=== PATIENT | male | born 1940 | race Caucasian/White ===

== ENCOUNTER 2016-12-31 10:11 | Inpatient (IN) | payer OTHER, MEDICARE ==
[~2016-12-31] VITALS: Ht 175.3 cm; Wt 75.0 kg
[2016-12-31] VITALS (16 sets, daily range): BP systolic 148–185; BP diastolic 72–90; PULSE 61–95; RESP 19–29; TEMP 97.7–98.4; O2SAT 40–100
[2016-12-31] MEDS ORDERED: ENTE325T PO (10:51)
[2016-12-31] MEDS ORDERED: LISI-515 PO (10:51)
[2016-12-31] MEDS ORDERED: PLAV75TA29 PO (10:51)
[2016-12-31] MEDS ORDERED: ATEN25TA PO (10:51)
[2016-12-31] MEDS ORDERED: METF500T PO (10:51)
[2016-12-31] MEDS ORDERED: PRAV20TA PO (10:51)
--- NOTE | 2016-12-31 10:51 | PD ---
HPI Chief Complaint: Respiratory Symptoms Time Seen by Provider: 10:37 Travel History International Travel<30 days: No Contact w/Intl Traveler<30days: No Traveled to known affect area: No History of Present Illness HPI 76yo M with PMH of CAD s/p cardiac stent, HTN, DM presents to the ED with c/o worsening sob since 6:30am today. States he felt more sob than normal just sitting down. Associated with diaphoresis. States sob has improved but not back at baseline. Denies any fever, chest pain, n/v, abdominal pain, focal weakness or numbness. PFSH Past Medical History Hx Anticoagulant Therapy: Yes Cardiovascular Problems: Yes (HTN, CAD, ANGINA ) High Cholesterol: Yes COPD: Yes Coronary Artery Disease: Yes Diabetes: Yes Patient Takes Glucophage: Yes Hypertension: Yes Respiratory: Yes (COPD ) Tetanus Vaccination: > 5 Years Influenza Vaccination: No Past Surgical History Surgical History: No Previous Surgery Cardiac Surgery: Yes (STENT X3 , LA X1 ) Social History Alcohol Use: No Tobacco Use: No (QUIT 11/30/16 ) Substance Use: No Allergies-Medications (Allergen,Severity, Reaction): Coded Allergies: No Known Allergies (Unverified , 12/31/16) Reported Meds & Prescriptions Reported Meds & Active Scripts Active Reported Pravachol (Pravastatin) 20 Mg Tab 10 Mg PO DAILY Enteric Coated Aspirin (Aspirin) 325 Mg Tabdr 325 Mg PO BID Metformin (Metformin HCl) 500 Mg Tab 500 Mg PO BIDPC With meals Atenolol 25 Mg Tab 25 Mg PO DAILY Plavix (Clopidogrel Bisulfate) 75 Mg Tab 75 Mg PO DAILY Lisinopril 20 Mg Tab 20 Mg PO DAILY Review of Systems Except as stated in HPI: all other systems reviewed are Neg Physical Exam Narrative GENERAL: 76yo M in mild distress. SKIN: Focused skin assessment warm/dry. HEAD: Atraumatic. Normocephalic. EYES: Pupils equal and round. No scleral icterus. No injection or drainage. ENT: No nasal bleeding or discharge. Mucous membranes pink and moist. NECK: Trachea midline. + JVD. CARDIOVASCULAR: Regular rate and rhythm. +Systolic murmur appreciated. RESPIRATORY: + accessory muscle use. End expiratory wheezing bilaterally. Decreased breath sounds bilaterally. GASTROINTESTINAL: Abdomen soft, non-tender, nondistended. MUSCULOSKELETAL: No obvious deformities. No clubbing. No cyanosis. +Bilateral lower ext edema. NEUROLOGICAL: Awake and alert. No obvious cranial nerve deficits. Motor grossly within normal limits. Normal speech. PSYCHIATRIC: Appropriate mood and affect; insight and judgment normal. Data Data Last Documented VS Vital Signs Date Time Temp Pulse Resp B/P (MAP) Pulse Ox O2 Delivery O2 Flow Rate FiO2 12/31/16 12:00 71 29 171/80 (110) 100 BiPAP 40 12/31/16 10:32 98.3 Orders Orders Complete Blood Count With Diff (12/31/16 10:46) Basic Metabolic Panel (Bmp) (12/31/16 10:46) B-Type Natriuretic Peptide (12/31/16 10:46) Act Partial Throm Time (Ptt) (12/31/16 10:46) Prothrombin Time / Inr (Pt) (12/31/16 10:46) Magnesium (Mg) (12/31/16 10:46) Troponin I (12/31/16 10:46) Iv Access Insert/Monitor (12/31/16 10:46) Ecg Monitoring (12/31/16 10:46) Oximetry (12/31/16 10:46) Oxygen Administration (12/31/16 10:46) Chest, Single Ap (12/31/16 10:46) Sodium Chloride 0.9% Flush (Ns Flush) (12/31/16 11:00) Blood Culture (12/31/16 12:15) Lactic Acid Sepsis Protocol (12/31/16 12:15) Ceftriaxone Inj (Rocephin Inj) (12/31/16 12:15) Azithromycin (Zithromax) (12/31/16 12:15) Furosemide Inj (Lasix Inj) (12/31/16 12:30) Arterial Blood Gas (Abg) (12/31/16 12:28) Resp Bipap / Cpap Non Invas Vt (12/31/16 12:28) Admit Order (Ed Use Only) (12/31/16 12:39) Labs Laboratory Tests Test 12/31/16 10:52 12/31/16 12:40 White Blood Count 7.9 TH/MM3 Red Blood Count 4.50 MIL/MM3 Hemoglobin 11.7 GM/DL Hematocrit 37.5 % Mean Corpuscular Volume 83.2 FL Mean Corpuscular Hemoglobin 25.9 PG Mean Corpuscular Hemoglobin Concent 31.2 % Red Cell Distribution Width 15.9 % Platelet Count 191 TH/MM3 Mean Platelet Volume 8.1 FL Neutrophils (%) (Auto) 74.5 % Lymphocytes (%) (Auto) 16.6 % Monocytes (%) (Auto) 6.8 % Eosinophils (%) (Auto) 1.7 % Basophils (%) (Auto) 0.4 % Neutrophils # (Auto) 5.9 TH/MM3 Lymphocytes # (Auto) 1.3 TH/MM3 Monocytes # (Auto) 0.5 TH/MM3 Eosinophils # (Auto) 0.1 TH/MM3 Basophils # (Auto) 0.0 TH/MM3 CBC Comment DIFF FINAL Differential Comment Prothrombin Time 11.2 SEC Prothromb Time International Ratio 1.0 RATIO Activated Partial Thromboplast Time 28.3 SEC Blood Urea Nitrogen 26 MG/DL Creatinine 0.99 MG/DL Random Glucose 148 MG/DL Calcium Level 9.0 MG/DL Magnesium Level 2.1 MG/DL Sodium Level 144 MEQ/L Potassium Level 4.0 MEQ/L Chloride Level 110 MEQ/L Carbon Dioxide Level 27.2 MEQ/L Anion Gap 7 MEQ/L Estimat Glomerular Filtration Rate 73 ML/MIN Troponin I 0.44 NG/ML B-Type Natriuretic Peptide 1467 PG/ML Blood Gas Puncture Site LT RADIAL Blood Gas Patient Temperature 98.6 Blood Gas HCO3 26 mmol/L Blood Gas Base Excess 2.0 mmol/L Blood Gas Oxygen Saturation 94 % Arterial Blood pH 7.40 Arterial Blood Partial Pressure CO2 43 mmHg Arterial Blood Partial Pressure O2 82 mmHG Arterial Blood Oxygen Content 15.0 Vol % Arterial Blood Carboxyhemoglobin 1.6 % Arterial Blood Methemoglobin 0.6 % Blood Gas Hemoglobin 11.3 G/DL Blood Gas Liter Flow 2 L/M [facility] Medical Decision Making Medical Screen Exam Complete: Yes Emergency Medical Condition: Yes Interpretation(s) EKG: NSR 83bpm. Normal axis. LVH. ST depression diffusely. Differential Diagnosis CHF vs. ACS vs. pneumonia Narrative Course 76yo M with sob that is worst than normal today. Impression is CHF. Labs reviewed, no leukocytosis. BNP is elevated at 1467. Troponin is mildly elevated at 0.44, may be secondary to CHF but will trend since pt has CAD. EKG does show diffuse ST depression but there is also LVH pattern. Pt has no chest pain. CXR showed masslike consolidation in right upper lobe and small right pleural effusion. Left lower lobe infiltrate. Cardiomegaly. Pt had some chills but no fever or cough. Blood culture drawn and lactic acid added. Ceftriaxone and azithromycin given empirically. Pt reevaluated at bedside and is still tachypneic. He is saturating at 100% on 2 L NC but still feels sob. Will give lasix 40mg IV and also place pt on BIPAP. Discussed with resident physician and accepted to their service. Pt's deputy fire chief Dr. Denae plascencia. Discussed with Dr. Philippe and he agrees with the lasix. Pt reevaluated at bedside and feels more comfortable with BIPAP. Pt is less tachypneic and sob improved. Critical Care Narrative Aggregate critical care time was 60 minutes. Time to perform other separately billable procedures was not included in the critical care time. My time did not include minutes spent treating any other patients simultaneously or on activities that did not directly contribute to the patient's treatment. The services I provided to this patient were to treat and/or prevent clinically significant deterioration that could result in: cardiovascular collapse or . I provided critical care services requiring my management, as noted below: Chart data review, documentation time, medication orders and management, vital sign assessments/reviewing monitor data, ordering and reviewing lab tests, ordering and interpreting/reviewing x-rays and diagnostic studies, care of the patient and discussion of the patient with the admitting physicians. Diagnosis Primary Impression: CHF exacerbation Admitting Information Admitting Physician Requests: Ivette Rios DO Dec 31, 2016 10:51
[2016-12-31] MEDS ORDERED: SODIUM CHLORIDE 0.9% FLUSH 10 ML FLUSH IVF PRN (11:00)
--- NOTE | 2016-12-31 11:21 | RADRPT ---
EXAM DATE/TIME: 12/31/2016 11:06 [place] COMPARISON: No previous studies available for comparison. INDICATIONS : Shortness of breath. MEDICAL HISTORY : Hypertension. Hypercholesterolemia. Myocardial infarction. COPD, Angina SURGICAL HISTORY : Stents ENCOUNTER: Initial ACUITY: 1 week PAIN SCORE: 0/10 LOCATION: Bilateral chest FINDINGS: A single portable frontal view of the chest shows a masslike density involving the right upper lobe. An elliptical density is seen associated with the major fissure potentially related to loculated effu mila. Blunting of the right costophrenic angle consistent with small right effusion. Left basilar pro bable consolidation. No effusion on the left. Heart is enlarged. A degenerative scoliotic spine. CONCLUSION: 1. Masslike consolidation involving the right upper lobe. 2. Small right pleural effusion with a small component of suspected loculated fluid within the major fissure. 3. Left lower lobe infiltrate. 4. Cardiomegaly. Sathya Coles Jr., MD on December 31, 2016 at 11:18 Board Certified Radiologist. This report was verified electronically.
[2016-12-31 11:41] LABS: AUTOMATED NEUTROPHIL # 5.9 TH/MM3 (1.8-7.7); BASOPHIL % 0.4 % (0.0-2.0); EOSINOPHIL # 0.1 TH/MM3 (0-0.4); EOSINOPHIL % 1.7 % (0.0-4.0); HEMATOCRIT 37.5 % (39.0-51.0); HEMO FLAGS DIFF FINAL; LYMPH % 16.6 % (9.0-44.0); LYMPHOCYTE # 1.3 TH/MM3 (1.0-4.8); MEAN CELL VOLUME 83.2 FL (80.0-100.0); MEAN CORPUSCULAR HEMOGLOBIN 25.9 PG (27.0-34.0); MEAN CORPUSCULAR HGB CONC 31.2 % (32.0-36.0); MONO % 6.8 % (0.0-8.0); NEUT % 74.5 % (16.0-70.0); PLATELET COUNT 191 TH/MM3 (150-450); RED CELL DISTRIBUTION WIDTH 15.9 % (11.6-17.2); WHITE BLOOD COUNT 7.9 TH/MM3 (4.0-11.0)
[2016-12-31 11:43] LABS: APTT (PATIENT) 28.3 SEC (24.3-30.1); PROTHROMBIN TIME - PATIENT 11.2 SEC (9.8-11.6)
[2016-12-31 11:49] LABS: BICARBONATE 27.2 MEQ/L (21.0-32.0); MAGNESIUM 2.1 MG/DL (1.5-2.5)
[2016-12-31] MEDS ORDERED: cefTRIAXone INJ 1,000 MG in SODIUM CHLORIDE 0.9% INJ 100 ML IV ONE (12:15)
[2016-12-31] MEDS ORDERED: AZITHROMYCIN 250 MG TAB PO ONE (12:15)
[2016-12-31] MEDS ORDERED: FUROSEMIDE 40 MG/4 ML VIAL IV PUSH ONE (12:30)
[2016-12-31 12:47] LABS: BLOOD GAS CARBOXYHEMOGLOBIN 1.6 % (0-4); BLOOD GAS HCO3 26 mmol/L (22-26); BLOOD GAS METHEMOGLOBIN 0.6 % (0-2); BLOOD GAS O2 HGB SATURATION 94 % (90-100); BLOOD GAS PCO2 43 mmHg (38-42); BLOOD GAS PO2 82 mmHG (61-120); BLOOD GAS TOTAL HGB 11.3 G/DL (12.0-16.0); TEMP CORR TO 98.6
[2016-12-31 12:48] LABS: CRITICAL VALUE NO; DRAW SITE LT RADIAL; LITER FLOW 2 L/M; NUMBER OF ARTERIAL PUNCTURES 1; STAT YES; ULNAR PULSE PRESENT
--- NOTE | 2016-12-31 12:55 | HHI.HP ---
[facility] Service Family Medicine Primary Care Physician Unknown Admission Diagnosis CHF exacerbation Diagnoses: International Travel<30 Days: No Contact w/Intl Traveler<30days: No Known Affected Area: No History of Present Illness 76 y/o M, pmhx CAD and smoking, comes in with worsening SOB. He has been experiencing SOB for 1 month, with worsening over the last 1.5 weeks. He experiences these symptoms daily and describes it as - a feeling of not being able to get enough air in his lungs. His SOB acutely worsened this morning around 6:30AM. He has noticed the sx with activity; for example, walking to the mailbox, walking around grocery store, and today even walking to bathroom. He denies any cough, congestion, or other signs of infection. Denies fever/chills. Denies any pain with breathing in or out. Denies any sick contacts or recent travel. He follows with a electroless plater and denies every being told he has any valve abnormalities or heart failure. He stopped smoking a week before his sx started, and has smoked cigarretes for 60pack years. No recent weight changes, change in appetite, or night sweats. (Leighann Amaro MD R2) Review of Systems Constitutional: DENIES: Fever, Weight gain Endocrine: DENIES: Polydipsia, Polyuria Eyes: DENIES: Photosensitivity Ears, nose, mouth, throat: DENIES: Hearing loss, Epistaxis Respiratory: DENIES: Snoring Cardiovascular: DENIES: Palpitations, Lower Extremity Edema Gastrointestinal: DENIES: Black stools, Bloody stools Genitourinary: DENIES: Sexual dysfunction, Hematuria Musculoskeletal: DENIES: Muscle aches Integumentary: DENIES: Nail changes Hematologic/lymphatic: DENIES: Lymphadenopathy Immunologic/allergic: DENIES: Urticaria Neurologic: DENIES: Headache Psychiatric: DENIES: Mood changes (Leighann Amaro MD R2) Past Family Social History Past Medical History CT in 1999 w/ 3 stents - f/u cardio DMII - metformin hypertension - well-controlled on current medications per patient hyperlipidemia (Leighann Amrao MD R2) Allergies: Coded Allergies: No Known Allergies (Unverified , 12/31/16) Family History mom, sisters - HTN daughter, brothers - cancer (does not know what type) Social History denies smoking, last alcohol use was 25y/ago (never an alcohol abuser), denies IV drug use or other drug use (Leighann Amaro MD R2) Physical Exam Vital Signs Vital Signs Date Time Temp Pulse Resp B/P (MAP) Pulse Ox O2 Delivery O2 Flow Rate FiO2 12/31/16 12:45 100 40 12/31/16 12:42 100 BiPAP 40 12/31/16 12:00 71 29 171/80 (110) 100 BiPAP 40 12/31/16 11:24 100 Room Air 12/31/16 10:32 95 25 97 Room Air 12/31/16 10:32 98.3 95 25 185/87 (119) 100 Room Air 12/31/16 10:13 98.4 86 20 168/72 (104) 91 Room Air Physical Exam GENERAL: This is a well-nourished, well-developed patient, in no apparent distress. SKIN: No rashes, ecchymoses or lesions. Cool and dry. HEAD: Atraumatic. Normocephalic. No temporal or scalp tenderness. EYES: Pupils equal round and reactive. Extraocular motions intact. No scleral icterus. No injection or drainage. ENT: Nose without bleeding, purulent drainage or septal hematoma. Throat without erythema, tonsillar hypertrophy or exudate. Uvula midline. Airway patent. NECK: Trachea midline. No JVD or lymphadenopathy. Supple, nontender, no meningeal signs. CARDIOVASCULAR: Regular rate and rhythm , prominent murmur heard on auscultation ; differential includes aortic stenosis or mitral regurgitation RESPIRATORY: Breath sounds equal bilaterally; distant breath sounds. Rhonchi heard on auscultation. No wheezing heard on auscultation. Accuracy of physical exam was limited by noise of BiPAP GASTROINTESTINAL: Abdomen soft, non-tender, nondistended. No hepato-splenomegaly , or palpable masses. No guarding. MUSCULOSKELETAL: Extremities without clubbing, cyanosis, or edema. No joint tenderness, effusion, or edema noted. No calf tenderness. Negative Homans sign bilaterally. NEUROLOGICAL: Awake and alert. Cranial nerves II through XII intact. Motor and sensory grossly within normal limits. Five out of 5 muscle strength in all muscle groups. Normal speech. Laboratory Laboratory Tests Test 12/31/16 10:52 12/31/16 12:40 White Blood Count 7.9 Red Blood Count 4.50 Hemoglobin 11.7 Hematocrit 37.5 Mean Corpuscular Volume 83.2 Mean Corpuscular Hemoglobin 25.9 Mean Corpuscular Hemoglobin Concent 31.2 Red Cell Distribution Width 15.9 Platelet Count 191 Mean Platelet Volume 8.1 Neutrophils (%) (Auto) 74.5 Lymphocytes (%) (Auto) 16.6 Monocytes (%) (Auto) 6.8 Eosinophils (%) (Auto) 1.7 Basophils (%) (Auto) 0.4 Neutrophils # (Auto) 5.9 Lymphocytes # (Auto) 1.3 Monocytes # (Auto) 0.5 Eosinophils # (Auto) 0.1 Basophils # (Auto) 0.0 CBC Comment DIFF FINAL Differential Comment Prothrombin Time 11.2 Prothromb Time International Ratio 1.0 Activated Partial Thromboplast Time 28.3 Blood Urea Nitrogen 26 Creatinine 0.99 Random Glucose 148 Calcium Level 9.0 Magnesium Level 2.1 Sodium Level 144 Potassium Level 4.0 Chloride Level 110 Carbon Dioxide Level 27.2 Anion Gap 7 Estimat Glomerular Filtration Rate 73 Troponin I 0.44 B-Type Natriuretic Peptide 1467 Blood Gas Puncture Site LT RADIAL Blood Gas Patient Temperature 98.6 Blood Gas HCO3 26 Blood Gas Base Excess 2.0 Blood Gas Oxygen Saturation 94 Arterial Blood pH 7.40 Arterial Blood Partial Pressure CO2 43 Arterial Blood Partial Pressure O2 82 Arterial Blood Oxygen Content 15.0 Arterial Blood Carboxyhemoglobin 1.6 Arterial Blood Methemoglobin 0.6 Blood Gas Hemoglobin 11.3 Blood Gas Liter Flow 2 (Leighann Amaro MD R2) Result Diagram: 12/31/16 1052 12/31/16 1052 Caprini VTE Risk Assessment Caprini VTE Risk Assessment: No/Low Risk (score <= 1) Caprini Risk Assessment Model Point Value = 1 Point Value = 2 Point Value = 3 Point Value = 5 Age 41-60 Minor surgery BMI > 25 kg/m2 Swollen legs Varicose veins or History of unexplained or recurrent spontaneous Oral contraceptives or hormone replacement Sepsis (< 1 month) Serious lung disease, including pneumonia (< 1 month) Abnormal pulmonary function Acute myocardial infarction Congestive heart failure (< 1 month) History of inflammatory bowel disease Medical patient at bed rest Age 61-74 Arthroscopic surgery Major open surgery (> 45 min) Laparoscopic surgery (> 45 min) Malignancy Confined to bed (> 72 hours) Immobilizing plaster cast Central venous access Age >= 75 History of VTE Family history of VTE Factor V Leiden Prothrombin [id number] Lupus anticoagulant Anticardiolipin antibodies Elevated serum homocysteine Heparin-induced thrombocytopenia Other congenital or acquired thrombophilia Stroke (< 1 month) Elective arthroplasty Hip, pelvis, or leg fracture Acute spinal cord injury (< 1 month) Prophylaxis Regimen Total Risk Factor Score Risk Level Prophylaxis Regimen 0-1 Low Early ambulation 2 Moderate Order ONE of the following: *Sequential Compression Device (SCD) *Heparin 5000 units SQ BID 3-4 Higher Order ONE of the following medications: *Heparin 5000 units SQ TID *Enoxaparin/Lovenox 40 mg SQ daily (WT < 150 kg, CrCl > 30 mL/min) *Enoxaparin/Lovenox 30 mg SQ daily (WT < 150 kg, CrCl > 10-29 mL/min) *Enoxaparin/Lovenox 30 mg SQ BID (WT < 150 kg, CrCl > 30 mL/min) AND/OR *Sequential Compression Device (SCD) 5 or more Highest Order ONE of the following medications: *Heparin 5000 units SQ TID (Preferred with Epidurals) *Enoxaparin/Lovenox 40 mg SQ daily (WT < 150 kg, CrCl > 30 mL/min) *Enoxaparin/Lovenox 30 mg SQ daily (WT < 150 kg, CrCl > 10-29 mL/min) *Enoxaparin/Lovenox 30 mg SQ BID (WT < 150 kg, CrCl > 30 mL/min) AND *Sequential Compression Device (SCD) (Leighann Amaro MD R2) Assessment and Plan Assessment and Plan 76-year-old male, medical history of CAD and smoking, with acute worsening of shortness of breath. Differential includes COPD versus pneumonia versus CHF versus heart valve abnormality Code Status Full code (Leighann Amaro MD R2) Attending Attestation Patient seen and examined. Case reviewed and discussed with the resident team. Agree with plan of care as discussed with me and documented in the resident note. pt seen on admission in ED. Initially he was in such distress we considered placing him in IMC. However, he is a very adamant DNR and refuses entubation regardless. Fortunately he improved and is better with his breathing today. he has been unable to speak in full sentences so some of the H&P were from questioning his who was in the room (Fatimah Gee MD) Problem List: (1) Shortness of breath ICD Codes: R06.02 - Shortness of breath Status: Acute Plan: 76-year-old male, medical history of CAD and smoking, with acute worsening of shortness of breath. Differential includes COPD versus pneumonia versus CHF versus heart valve abnormality. Patient evaluated bedside and is still tachypneic and feeling short of breath, with the labored breathing pattern. Status post Lasix 40 IV and BiPAP - Chest x-ray: Masslike consolidation involving the right upper lobe, small right pleural effusion with a small component of suspected loculated fluid within the major fissure, left lower lobe infiltrate, cardiomegaly - No leukocytosis - BNP elevated at 1467 - Troponin 0.44 - EKG: LVH pattern, no ST segment changes - Continue BiPAP - ceftriaxone 1 g given in the ED, azithromycin 500 mg given in the ED - Lasix 40 given in the ED at 12 PM (2) CAD (coronary artery disease) ICD Codes: I25.10 - Atherosclerotic heart disease of [place] coronary artery without angina pectoris Status: Chronic Plan: History of coronary artery disease and stent placement - Continue Plavix 75 daily - Continue aspirin 325 daily - Continue pravastatin 10 daily - Follow up troponins and EKGs - see initial EKG as reported above (3) Hypertension ICD Codes: I10 - Essential (primary) hypertension Status: Chronic Plan: Continue lisinopril 20 daily Continue atenolol 25 daily (4) Diabetes mellitus ICD Codes: E11.9 - Type 2 diabetes mellitus without complications Plan: NovoLog sliding scale Hypoglycemia protocol ordered Follow-up fingersticks (5) FEN/PPX Status: Acute Plan: Fluids: 1500ml fluid restriction, 2g Na restriction Electrolytes: f/u BMP in AM Nutrition: heart healthy as tolerated GI: n/a DVT: Heparin 5000 TID (Leighann Amaro MD R2) Physician Certification 2 Midnight Certification Type: Admission for Inpatient Services Order for Inpatient Services The services are ordered in accordance with Medicare regulations or non- Medicare payer requirements, as applicable. In the case of services not specified as inpatient-only, they are appropriately provided as inpatient services in accordance with the 2-midnight benchmark. Estimated LOS (days): 2 days is the estimated time the patient will need to remain in the hospital, assuming treatment plan goals are met and no additional complications. Post-Hospital Plan: Home (Leighann Amaro MD R2) Problem Qualifiers (1) CAD (coronary artery disease): Qualified Codes: I25.119 - Atherosclerotic heart disease of [place] coronary artery with unspecified angina pectoris (2) Hypertension: Qualified Codes: I10 - Essential (primary) hypertension (3) Diabetes mellitus: Qualified Codes: E11.8 - Type 2 diabetes mellitus with unspecified complications Leighann Amaro MD R2 Dec 31, 2016 12:55 Fatimah Gee MD Jan 01, 2017 13:49
[2016-12-31] MEDS ORDERED: SODIUM CHLORIDE 0.9% FLUSH 10 ML FLUSH IV FLUSH PRN ×2 (13:00)
[2016-12-31] MEDS ORDERED: ACETAMINOPHEN 325 MG TAB PO PRN (13:15)
[2016-12-31] MEDS ORDERED: ONDANSETRON HCL 4 MG/2 ML VIAL IV PRN (13:15)
[2016-12-31] MEDS ORDERED: GLUCAGON 1 MG/ML VIAL OTHER PRN (13:45)
[2016-12-31] MEDS ORDERED: DEXTROSE 50% IN WATER 50 ML VIAL(D50) IV PRN (13:45)
[2016-12-31] MEDS ORDERED: HEPARIN SODIUM - SQ 10,000 UNITS/ML VIAL SQ SCH (13:45)
[2016-12-31] MEDS: LISINOPRIL 20 MG TAB PO SCH (13:58)
[2016-12-31] MEDS: CLOPIDOGREL 75 MG TAB PO SCH (13:58)
[2016-12-31] MEDS: INSULIN ASPART SUPPLEMENTAL SCALE SQ SCH ×2 (16:00→21:00)
[2016-12-31] MEDS ORDERED: SODIUM CHLORIDE 0.9% FLUSH 10 ML FLUSH IV FLUSH SCH (21:00)
[2016-12-31] MEDS: HEPARIN SODIUM - SQ 10,000 UNITS/ML VIAL SQ SCH (21:09)
[2016-12-31] MEDS: SODIUM CHLORIDE 0.9% FLUSH 10 ML FLUSH IV FLUSH SCH (21:09)
[2016-12-31] MEDS: PRAVASTATIN SOD 10 MG TAB PO SCH (21:10)
--- NOTE | 2016-12-31 21:18 | MB ---
cc: HERI REDMAN M.D. DATE OF CONSULTATION: 12/31/2016 REASON FOR CONSULTATION: CHF exacerbation and pneumonia. HISTORY OF PRESENT ILLNESS: This is a 76 year-old male with a past medical history of coronary artery disease, status post myocardial infarction, and stenting in the past, also history of advanced COPD, type 2 diabetes mellitus and hypertension. The patient presented to [facility] with increasing shortness of breath over the past couple of months. This has been progressively worsening. He denied chest pain. Initial workup in the emergency room included a chest x-ray which showed cardiomegaly, congestive heart failure and left-sided pneumonia with possible mass in the right upper lung. BNP was elevated at 1400 and troponin was also mildly elevated at 0.4. 12-lead EKG showed normal sinus rhythm with mild ST depression throughout. The patient was admitted for further evaluation and management. The patient received diuretics and he seemed a little bit better, however, he also reports symptoms of orthopnea over the past couple weeks. ALLERGIES Unknown. SOCIAL HISTORY The patient smoked for a long time and continues to do so. FAMILY HISTORY: Noncontributory. REVIEW OF SYSTEMS: HEENT: No complaints of tenderness or dizziness. Cardiovascular: History of coronary artery disease status post myocardial infarction and stenting. Pulmonary: History of advanced COPD and pneumonia. GI: No history of GI bleed. : No history of renal failure, positive for type 2 diabetes mellitus. The remainder of the review of systems is within normal limits. PHYSICAL EXAMINATION: VITAL SIGNS: Blood pressure 170/80 with heart rate 70, respiratory rate of 29, the patient is afebrile. Neck: Supple with no jugular venous distension. Chest: Crackles bilaterally with expiratory wheezes. Heart: S1 normal in intensity, S2 single, regular rate and rhythm. Abdomen: Benign. Extremities: No edema. IMPRESSION 1. Congestive heart failure exacerbation secondary to diastolic dysfunction. 2. History of coronary artery disease, status post myocardial infarction and stenting. 3. Positive troponin, most likely representing non ST elevation myocardial infarction. 4. Left lowre lobe pneumonia. 5. Right upper mass in the right upper lung. 6. Type 2 diabetes mellitus. 7. COPD. 8. Tobacco abuse. RECOMMENDATIONS Would continue unloading treatment. The patient has been placed on antibiotics. The patient had nuclear stress test in my office last month which showed large inferior IL without evidence of ischemia. I will continue to follow and provide further recommendation accordingly. MD ZARI Mehta/JHON /5:54 PM /8:41 PM
[2016-12-31 21:37] LABS: BLOOD, URINE TRACE (NEG); COMMENT (UR) CULT NOT INDICATED; CULTURE IF INDICATED CULT NOT INDICATED; GLUCOSE,URINE NEG (NEG); HYALINE CAST, URINE 8 /lpf (RARE); KETONE, URINE NEG (NEG); NITRITE,URINE NEG (NEG); URINE COLOR LIGHT-YELLOW (YELLW/STRAW)
[2017-01-01] VITALS (27 sets, daily range): BP systolic 112–146; BP diastolic 62–81; PULSE 43–98; RESP 18–20; TEMP 97.2–98.1; O2SAT 95–99
[2017-01-01] MEDS: HEPARIN SODIUM - SQ 10,000 UNITS/ML VIAL SQ SCH ×3 (06:26→21:31)
[2017-01-01] MEDS: INSULIN ASPART SUPPLEMENTAL SCALE SQ SCH ×4 (06:29→21:00)
[2017-01-01 06:37] LABS: AUTOMATED NEUTROPHIL # 4.7 TH/MM3 (1.8-7.7); BASOPHIL # 0.1 TH/MM3 (0-0.2); BASOPHIL % 0.8 % (0.0-2.0); EOSINOPHIL # 0.2 TH/MM3 (0-0.4); HEMATOCRIT 34.5 % (39.0-51.0); HEMO FLAGS DIFF FINAL; LYMPH % 21.7 % (9.0-44.0); LYMPHOCYTE # 1.6 TH/MM3 (1.0-4.8); MEAN CELL VOLUME 82.9 FL (80.0-100.0); MEAN CORPUSCULAR HEMOGLOBIN 26.3 PG (27.0-34.0); MEAN CORPUSCULAR HGB CONC 31.7 % (32.0-36.0); MONO % 9.4 % (0.0-8.0); NEUT % 65.1 % (16.0-70.0); PLATELET COUNT 173 TH/MM3 (150-450); RED BLOOD COUNT 4.16 MIL/MM3 (4.50-5.90); RED CELL DISTRIBUTION WIDTH 16.1 % (11.6-17.2); WHITE BLOOD COUNT 7.2 TH/MM3 (4.0-11.0)
[2017-01-01 07:00] LABS: BICARBONATE 29.6 MEQ/L (21.0-32.0); MAGNESIUM 2.1 MG/DL (1.5-2.5); POTASSIUM 3.6 MEQ/L (3.5-5.1)
--- NOTE | 2017-01-01 09:35 | HHI.HP ---
[facility] Service Family Medicine Primary Care Physician Unknown Admission Diagnosis CHF exacerbation Diagnoses: (1) CHF exacerbation Diagnosis: Principal (2) Shortness of breath Diagnosis: Principal (3) CAD (coronary artery disease) Diagnosis: Principal (4) Hypertension Diagnosis: Principal (5) Diabetes mellitus Diagnosis: Principal (6) FEN/PPX Diagnosis: Principal International Travel<30 Days: No Contact w/Intl Traveler<30days: No Known Affected Area: No History of Present Illness Mr Pires is a 76 y/o M, pmhx CAD and smoking, in with worsening SOB. He has been experiencing SOB for 1 month, with worsening over the last 1.5 weeks. He experiences these symptoms daily and describes it as - a feeling of not being able to get enough air in his lungs. His SOB acutely worsened the morning of admission around 6:30AM. He has noticed the sx with activity; for example, walking to the mailbox, walking around grocery store, and today even walking to bathroom. He denies any cough, congestion, or other signs of infection. Denies fever/chills. Denies any pain with breathing in or out. Denies any sick contacts or recent travel. He follows with a ophthalmic medical technician and denies ever being told he has any valve abnormalities or heart failure. He stopped smoking a week before his sx started, and has smoked cigarettes for 60pack years. No recent weight changes, change in appetite, or night sweats. He needed bipap when he first came in and was struggling to breathe initially. he came off bipap when he diuresed and was able to breathe more comfortably. he reported this am he was still SOB when walking to the bathroom but was much more comfortable at rest than on admission. He strongly requested leaving the hospital by Friday as his was leaving town. Review of Systems Other Constitutional: DENIES: Fever, Weight gain Endocrine: DENIES: Polydipsia, Polyuria Eyes: DENIES: Photosensitivity Ears, nose, mouth, throat: DENIES: Hearing loss, Epistaxis Respiratory: DENIES: Snoring Cardiovascular: DENIES: Palpitations, Lower Extremity Edema Gastrointestinal: DENIES: Black stools, Bloody stools Genitourinary: DENIES: Sexual dysfunction, Hematuria Musculoskeletal: DENIES: Muscle aches Integumentary: DENIES: Nail changes Hematologic/lymphatic: DENIES: Lymphadenopathy Immunologic/allergic: DENIES: Urticaria Neurologic: DENIES: Headache Psychiatric: DENIES: Mood changes Past Family Social History Past Medical History [place] in 1999 w/ 3 stents - f/u cardio DMII - metformin hypertension - well-controlled on current medications per patient hyperlipidemia Allergies: Coded Allergies: No Known Allergies (Unverified , 12/31/16) Family History mom, sisters - HTN daughter, brothers - cancer (does not know what type) Social History denies smoking, last alcohol use was 25 y/ago (never an alcohol abuser), denies IV drug use or other drug use Physical Exam Vital Signs Vital Signs Date Time Temp Pulse Resp B/P (MAP) Pulse Ox O2 Delivery O2 Flow Rate FiO2 01/01/17 08:00 98 01/01/17 07:00 95 Nasal Cannula 2.00 01/01/17 07:00 72 01/01/17 06:00 53 01/01/17 05:00 43 01/01/17 04:00 53 01/01/17 03:00 97 Nasal Cannula 2.00 01/01/17 03:00 56 01/01/17 03:00 97.9 69 18 136/77 (96) 97 01/01/17 02:00 76 01/01/17 01:00 56 01/01/17 00:00 78 12/31/16 23:00 98.0 66 20 148/84 (105) 96 12/31/16 23:00 70 12/31/16 23:00 96 Nasal Cannula 2.00 12/31/16 22:00 72 12/31/16 21:53 95 Nasal Cannula 2.50 12/31/16 21:00 66 12/31/16 20:00 74 12/31/16 19:00 95 Nasal Cannula 2.00 12/31/16 19:00 70 12/31/16 19:00 98.2 74 20 162/82 (108) 95 12/31/16 18:00 80 12/31/16 17:00 78 12/31/16 16:00 76 12/31/16 15:47 12/31/16 15:47 97.7 76 20 164/90 (114) 95 12/31/16 15:00 75 12/31/16 15:00 61 19 166/86 (112) 100 BiPAP 40 12/31/16 13:36 40 12/31/16 12:45 100 40 12/31/16 12:42 100 BiPAP 40 12/31/16 12:00 71 29 171/80 (110) 100 BiPAP 40 12/31/16 11:24 100 Room Air 12/31/16 10:32 95 25 97 Room Air 12/31/16 10:32 98.3 95 25 185/87 (119) 100 Room Air 12/31/16 10:13 98.4 86 20 168/72 (104) 91 Room Air Physical Exam GENERAL: This is a well-nourished, well-developed patient, in distress on admission with accessory muscle use and tachypnea until after his diuresis. more comfortable with bipap SKIN: No rashes, ecchymoses or lesions. Cool and dry. HEAD: Atraumatic. Normocephalic. EYES: Pupils equal round and reactive. Extraocular motions intact. No scleral icterus. No injection or drainage. ENT: Nose without bleeding, purulent drainage or septal hematoma. Throat without erythema, tonsillar hypertrophy or exudate. Uvula midline. Airway patent. NECK: Trachea midline. No JVD or lymphadenopathy. Supple, nontender, no meningeal signs. CARDIOVASCULAR: Regular rate and rhythm , soft blowing murmur heard on auscultation of left chest no radiation to neck RESPIRATORY: Breath sounds equal bilaterally; distant breath sounds. Rhonchi heard on auscultation. No wheezing heard on auscultation. Accuracy of physical exam was limited by noise of BiPAP initially GASTROINTESTINAL: Abdomen soft, non-tender, nondistended. No hepato-splenomegaly , or palpable masses. No guarding. MUSCULOSKELETAL: Extremities without clubbing, cyanosis, and very little edema. No joint tenderness, effusion, or edema noted. No calf tenderness. Negative Homans sign bilaterally. NEUROLOGICAL: Awake and alert. Cranial nerves II through XII intact. Motor and sensory grossly within normal limits. Five out of 5 muscle strength in all muscle groups. Normal speech but couldn't speak a full sentence initially. Laboratory Laboratory Tests Test 12/31/16 10:52 12/31/16 12:40 12/31/16 12:45 12/31/16 17:21 White Blood Count 7.9 Red Blood Count 4.50 Hemoglobin 11.7 Hematocrit 37.5 Mean Corpuscular Volume 83.2 Mean Corpuscular Hemoglobin 25.9 Mean Corpuscular Hemoglobin Concent 31.2 Red Cell Distribution Width 15.9 Platelet Count 191 Mean Platelet Volume 8.1 Neutrophils (%) (Auto) 74.5 Lymphocytes (%) (Auto) 16.6 Monocytes (%) (Auto) 6.8 Eosinophils (%) (Auto) 1.7 Basophils (%) (Auto) 0.4 Neutrophils # (Auto) 5.9 Lymphocytes # (Auto) 1.3 Monocytes # (Auto) 0.5 Eosinophils # (Auto) 0.1 Basophils # (Auto) 0.0 CBC Comment DIFF FINAL Differential Comment Prothrombin Time 11.2 Prothromb Time International Ratio 1.0 Activated Partial Thromboplast Time 28.3 Blood Urea Nitrogen 26 Creatinine 0.99 Random Glucose 148 Calcium Level 9.0 Magnesium Level 2.1 Sodium Level 144 Potassium Level 4.0 Chloride Level 110 Carbon Dioxide Level 27.2 Anion Gap 7 Estimat Glomerular Filtration Rate 73 Troponin I 0.44 0.48 B-Type Natriuretic Peptide 1467 Blood Gas Puncture Site LT RADIAL Blood Gas Patient Temperature 98.6 Blood Gas HCO3 26 Blood Gas Base Excess 2.0 Blood Gas Oxygen Saturation 94 Arterial Blood pH 7.40 Arterial Blood Partial Pressure CO2 43 Arterial Blood Partial Pressure O2 82 Arterial Blood Oxygen Content 15.0 Arterial Blood Carboxyhemoglobin 1.6 Arterial Blood Methemoglobin 0.6 Blood Gas Hemoglobin 11.3 Blood Gas Liter Flow 2 Lactic Acid Level 0.9 Test 12/31/16 20:38 12/31/16 22:30 01/01/17 05:06 Urine Color LIGHT-YELLOW Urine Turbidity CLEAR Urine pH 5.0 Urine Specific [place] 1.012 Urine Protein NEG Urine Glucose (UA) NEG Urine Ketones NEG Urine Occult Blood TRACE Urine Nitrite NEG Urine Bilirubin NEG Urine Urobilinogen LESS THAN 2.0 Urine Leukocyte Esterase NEG Urine RBC 1 Urine WBC LESS THAN 1 Urine Hyaline Casts 8 Microscopic Urinalysis Comment CULT NOT INDICATED Troponin I 0.55 White Blood Count 7.2 Red Blood Count 4.16 Hemoglobin 10.9 Hematocrit 34.5 Mean Corpuscular Volume 82.9 Mean Corpuscular Hemoglobin 26.3 Mean Corpuscular Hemoglobin Concent 31.7 Red Cell Distribution Width 16.1 Platelet Count 173 Mean Platelet Volume 8.2 Neutrophils (%) (Auto) 65.1 Lymphocytes (%) (Auto) 21.7 Monocytes (%) (Auto) 9.4 Eosinophils (%) (Auto) 3.0 Basophils (%) (Auto) 0.8 Neutrophils # (Auto) 4.7 Lymphocytes # (Auto) 1.6 Monocytes # (Auto) 0.7 Eosinophils # (Auto) 0.2 Basophils # (Auto) 0.1 CBC Comment DIFF FINAL Differential Comment Blood Urea Nitrogen 26 Creatinine 0.88 Random Glucose 84 Calcium Level 8.4 Magnesium Level 2.1 Sodium Level 141 Potassium Level 3.6 Chloride Level 104 Carbon Dioxide Level 29.6 Anion Gap 7 Estimat Glomerular Filtration Rate 84 Date/Time Source Procedure Growth Status 12/31/16 12:45 Blood Peripheral Aerobic Blood Culture Pending Received 12/31/16 12:45 Blood Peripheral Anaerobic Blood Culture Pending Received 12/31/16 20:38 Urine Clean Catch Legionella Antigen - Final PRESUMPTIVE NEGATIVE FOR LEGIONELLA P... Complete 12/31/16 20:38 Urine Clean Catch Streptococcus pneumoniae Antigen (M - Final PRESUMPTIVE NEGATIVE FOR STREPTOCOCCU... Complete Result Diagram: 01/01/17 0506 01/01/17 0506 Caprini VTE Risk Assessment Caprini VTE Risk Assessment: No/Low Risk (score <= 1) Caprini Risk Assessment Model Point Value = 1 Point Value = 2 Point Value = 3 Point Value = 5 Age 41-60 Minor surgery BMI > 25 kg/m2 Swollen legs Varicose veins or History of unexplained or recurrent spontaneous Oral contraceptives or hormone replacement Sepsis (< 1 month) Serious lung disease, including pneumonia (< 1 month) Abnormal pulmonary function Acute myocardial infarction Congestive heart failure (< 1 month) History of inflammatory bowel disease Medical patient at bed rest Age 61-74 Arthroscopic surgery Major open surgery (> 45 min) Laparoscopic surgery (> 45 min) Malignancy Confined to bed (> 72 hours) Immobilizing plaster cast Central venous access Age >= 75 History of VTE Family history of VTE Factor V Leiden Prothrombin 40240M Lupus anticoagulant Anticardiolipin antibodies Elevated serum homocysteine Heparin-induced thrombocytopenia Other congenital or acquired thrombophilia Stroke (< 1 month) Elective arthroplasty Hip, pelvis, or leg fracture Acute spinal cord injury (< 1 month) Prophylaxis Regimen Total Risk Factor Score Risk Level Prophylaxis Regimen 0-1 Low Early ambulation 2 Moderate Order ONE of the following: *Sequential Compression Device (SCD) *Heparin 5000 units SQ BID 3-4 Higher Order ONE of the following medications: *Heparin 5000 units SQ TID *Enoxaparin/Lovenox 40 mg SQ daily (WT < 150 kg, CrCl > 30 mL/min) *Enoxaparin/Lovenox 30 mg SQ daily (WT < 150 kg, CrCl > 10-29 mL/min) *Enoxaparin/Lovenox 30 mg SQ BID (WT < 150 kg, CrCl > 30 mL/min) AND/OR *Sequential Compression Device (SCD) 5 or more Highest Order ONE of the following medications: *Heparin 5000 units SQ TID (Preferred with Epidurals) *Enoxaparin/Lovenox 40 mg SQ daily (WT < 150 kg, CrCl > 30 mL/min) *Enoxaparin/Lovenox 30 mg SQ daily (WT < 150 kg, CrCl > 10-29 mL/min) *Enoxaparin/Lovenox 30 mg SQ BID (WT < 150 kg, CrCl > 30 mL/min) AND *Sequential Compression Device (SCD) Assessment and Plan Assessment and Plan 76-year-old male, medical history of CAD and smoking, with acute worsening of shortness of breath. Differential includes COPD versus pneumonia versus CHF versus heart valve abnormality Problem List: (1) Shortness of breath ICD Codes: R06.02 - Shortness of breath Status: Acute Plan: 76-year-old male, medical history of CAD and smoking, with acute worsening of shortness of breath. Differential includes COPD versus pneumonia versus CHF versus heart valve abnormality. Patient evaluated bedside and was still tachypneic and feeling short of breath, with the labored breathing pattern. Status post Lasix 40 IV and BiPAP. this am he feels 60 to 70 % better per pt - Chest x-ray: Masslike consolidation involving the right upper lobe, small right pleural effusion with a small component of suspected loculated fluid within the major fissure, left lower lobe infiltrate, cardiomegaly will recheck CXR may need CT chest. unclear if he has pneumonia, fluid overload and /or a mass - No leukocytosis - BNP elevated at 1467 - Troponin 0.44 - EKG: LVH pattern, no ST segment changes - Continue BiPAP as needed. he improved enough to not need this today - ceftriaxone 1 g given in the ED, azithromycin 500 mg given in the ED - Lasix 40 given in the ED at 12 PM, would continue iv but pt very eager to be sent home SAVANNA (2) CAD (coronary artery disease) ICD Codes: I25.10 - Atherosclerotic heart disease of red devil coronary artery without angina pectoris Status: Chronic Plan: History of coronary artery disease and stent placement Dr Woodruff is his ophthalmic medical technician and will help with his care - Continue Plavix 75 daily - Continue aspirin 325 daily - Continue pravastatin 10 daily - Follow up troponins and EKGs - see initial EKG as reported above (3) Hypertension ICD Codes: I10 - Essential (primary) hypertension Status: Chronic Plan: Continue lisinopril 20 daily Continue atenolol 25 daily (4) Diabetes mellitus ICD Codes: E11.9 - Type 2 diabetes mellitus without complications Plan: NovoLog sliding scale Hypoglycemia protocol ordered Follow-up fingersticks (5) FEN/PPX Status: Acute Plan: Fluids: 1500ml fluid restriction, 2g Na restriction Electrolytes: f/u BMP in AM Nutrition: heart healthy as tolerated GI: n/a DVT: Heparin 5000 TID Physician Certification 2 Midnight Certification Type: Admission for Inpatient Services Order for Inpatient Services The services are ordered in accordance with Medicare regulations or non- Medicare payer requirements, as applicable. In the case of services not specified as inpatient-only, they are appropriately provided as inpatient services in accordance with the 2-midnight benchmark. Estimated LOS (days): 3 3 days is the estimated time the patient will need to remain in the hospital, assuming treatment plan goals are met and no additional complications. Post-Hospital Plan: Home Problem Qualifiers (1) CHF exacerbation: Qualified Codes: I50.33 - Acute on chronic diastolic (congestive) heart failure (2) CAD (coronary artery disease): Qualified Codes: I25.119 - Atherosclerotic heart disease of red devil coronary artery with unspecified angina pectoris (3) Hypertension: Qualified Codes: I10 - Essential (primary) hypertension (4) Diabetes mellitus: Qualified Codes: E11.8 - Type 2 diabetes mellitus with unspecified complications Fatimah Gee MD Jan 01, 2017 09:35
--- NOTE | 2017-01-01 09:57 | HHI.PR ---
Subjective Remarks pt denies chest pain Objective Vital Signs Date Time Temp Pulse Resp B/P (MAP) Pulse Ox O2 Delivery O2 Flow Rate FiO2 01/01/17 09:00 78 01/01/17 08:00 98 01/01/17 07:00 98.0 66 20 132/78 (96) 96 01/01/17 07:00 95 Nasal Cannula 2.00 01/01/17 07:00 72 01/01/17 06:00 53 01/01/17 05:00 43 01/01/17 04:00 53 01/01/17 03:00 97 Nasal Cannula 2.00 01/01/17 03:00 56 01/01/17 03:00 97.9 69 18 136/77 (96) 97 01/01/17 02:00 76 01/01/17 01:00 56 01/01/17 00:00 78 12/31/16 23:00 98.0 66 20 148/84 (105) 96 12/31/16 23:00 70 12/31/16 23:00 96 Nasal Cannula 2.00 12/31/16 22:00 72 12/31/16 21:53 95 Nasal Cannula 2.50 12/31/16 21:00 66 12/31/16 20:00 74 12/31/16 19:00 95 Nasal Cannula 2.00 12/31/16 19:00 70 12/31/16 19:00 98.2 74 20 162/82 (108) 95 12/31/16 18:00 80 12/31/16 17:00 78 12/31/16 16:00 76 12/31/16 15:47 12/31/16 15:47 97.7 76 20 164/90 (114) 95 12/31/16 15:00 75 12/31/16 15:00 61 19 166/86 (112) 100 BiPAP 40 12/31/16 13:36 40 12/31/16 12:45 100 40 12/31/16 12:42 100 BiPAP 40 12/31/16 12:00 71 29 171/80 (110) 100 BiPAP 40 12/31/16 11:24 100 Room Air 12/31/16 10:32 95 25 97 Room Air 12/31/16 10:32 98.3 95 25 185/87 (119) 100 Room Air 12/31/16 10:13 98.4 86 20 168/72 (104) 91 Room Air I/O 12/31/16 12/31/16 12/31/16 01/01/17 01/01/17 01/01/17 07:00 15:00 23:00 07:00 15:00 23:00 Intake Total 240 ml 760 ml Output Total 800 ml 750 ml 600 ml Balance -800 ml -510 ml 160 ml Intake Oral 240 ml 760 ml Output Urine Total 800 ml 750 ml 600 ml # Bowel Movements 0 VSS CHEST: wheezes B/L. HEART: S1, S2, RRR ABD: ST, NT EXT; No edema Result Diagram: 01/01/17 0506 01/01/17 0506 Assessment and Plan Assessment and Plan pt is insisting on going home today. he is threatning to leave AMA. I explained that he needs to be treated for pneumonia and CHF. I recommend sending him home on Lasix 40 mg daily. I will see him in my office next week.. Anushka Woodruff MD Jan 01, 2017 09:57
[2017-01-01] MEDS: SODIUM CHLORIDE 0.9% FLUSH 10 ML FLUSH IV FLUSH SCH ×2 (10:10→21:31)
[2017-01-01] MEDS: CLOPIDOGREL 75 MG TAB PO SCH (10:11)
[2017-01-01] MEDS: LISINOPRIL 20 MG TAB PO SCH (10:11)
[2017-01-01] MEDS: ATENOLOL 25 MG TAB PO SCH (10:11)
[2017-01-01] MEDS: ASPIRIN EC 325 MG TABEC PO SCH (10:11)
[2017-01-01] MEDS ORDERED: POTASSIUM CHLORIDE 10 MEQ CAP PO ONE (11:00)
--- NOTE | 2017-01-01 11:04 | RADRPT ---
EXAM DATE/TIME: 01/01/2017 10:41 [place] COMPARISON: CHEST SINGLE AP, December 31, 2016, 11:06. INDICATIONS : Dyspnea. MEDICAL HISTORY : Hypertension. Hypercholesterolemia. Myocardial infarction. COPD, Angina SURGICAL HISTORY : Stents placed. ENCOUNTER: Subsequent ACUITY: 2 days PAIN SCORE: 0/10 LOCATION: Bilateral chest FINDINGS: PA and lateral views of the chest show bilateral pleural effusions. There is loculated fluid involvin g the major fissure and minor fissure on the right. No infiltrate or mass observed. The heart is norm al in size. A mildly degenerative thoracic spine. No pneumothorax. CONCLUSION: Small bilateral pleural effusions with loculated fluid involving the right major fissure and minor fi ssure. No infiltrate or mass. Sathya Coles Jr., MD on January 01, 2017 at 10:56 Board Certified Radiologist. This report was verified electronically.
[2017-01-01] MEDS: FUROSEMIDE 40 MG TAB PO SCH (11:32)
[2017-01-01] MEDS: cefTRIAXone INJ 1,000 MG in SODIUM CHLORIDE 0.9% INJ 100 ML IV SCH (11:33)
[2017-01-01] MEDS: AZITHROMYCIN INJ 500 MG in SODIUM CHLOR 0.9% 250 ML INJ 250 ML IV SCH (11:34)
[2017-01-01] MEDS: RESP: ALBUTEROL 2.5 MG/IPRATROPIUM 0.5 MG NEB (PRN) INH (17:02)
--- NOTE | 2017-01-01 19:49 | EKG ---
Date Performed: 12/31/2016 Time Performed: 17:58:48 PTAGE: 76 years EKG: Sinus rhythm . Left ventricular hypertrophy Inferior/lateral ST-T changes are probably due to ventricular hypertro phy Abnormal ECG PREVIOUS TRACING : 12/31/2016 13.58 Compared to prior tracing no significant change DOCTOR: Yu Vicente Interpretating Date/Time 01/01/2017 19:49:21
--- NOTE | 2017-01-01 20:00 | EKG ---
Date Performed: 12/31/2016 Time Performed: 13:58:03 PTAGE: 76 years EKG: Sinus rhythm POSSIBLE LEFT ATRIAL ENLARGEMENT LEFT VENTRICULAR HYPERTROPHY AND ST-T CHANGE ABNORMAL ECG PREVIOUS TRACING : 12/31/2016 10.37 Compared to prior tracing no significant change DOCTOR: Yu Vicente Interpretating Date/Time 01/01/2017 19:59:34
--- NOTE | 2017-01-01 20:11 | EKG ---
Date Performed: 12/31/2016 Time Performed: 10:37:40 PTAGE: 76 years EKG: Sinus rhythm LEFT VENTRICULAR HYPERTROPHY AND ST-T CHANGE ABNORMAL ECG NO PREVIOUS TRACING DOCTOR: Yu Vicente Interpretating Date/Time 01/01/2017 20:09:54
[2017-01-01] MEDS: PRAVASTATIN SOD 10 MG TAB PO SCH (21:31)
[2017-01-02] VITALS (26 sets, daily range): BP systolic 127–163; BP diastolic 74–84; PULSE 54–98; RESP 18–22; TEMP 97.7–98.3; O2SAT 92–97
[2017-01-02] MEDS: RESP: ALBUTEROL 2.5 MG/IPRATROPIUM 0.5 MG NEB (PRN) INH ×2 (04:20→23:47)
[2017-01-02 06:06] LABS: AUTOMATED NEUTROPHIL # 3.7 TH/MM3 (1.8-7.7); BASOPHIL % 0.6 % (0.0-2.0); EOSINOPHIL # 0.2 TH/MM3 (0-0.4); EOSINOPHIL % 3.7 % (0.0-4.0); HEMATOCRIT 35.5 % (39.0-51.0); HEMO FLAGS DIFF FINAL; LYMPH % 29.2 % (9.0-44.0); LYMPHOCYTE # 1.9 TH/MM3 (1.0-4.8); MEAN CELL VOLUME 82.9 FL (80.0-100.0); MEAN CORPUSCULAR HEMOGLOBIN 26.8 PG (27.0-34.0); MEAN CORPUSCULAR HGB CONC 32.4 % (32.0-36.0); MONO % 7.9 % (0.0-8.0); NEUT % 58.6 % (16.0-70.0); PLATELET COUNT 162 TH/MM3 (150-450); RED BLOOD COUNT 4.28 MIL/MM3 (4.50-5.90); RED CELL DISTRIBUTION WIDTH 15.6 % (11.6-17.2); WHITE BLOOD COUNT 6.4 TH/MM3 (4.0-11.0)
[2017-01-02] MEDS: HEPARIN SODIUM - SQ 10,000 UNITS/ML VIAL SQ SCH ×3 (06:21→20:32)
[2017-01-02] MEDS: INSULIN ASPART SUPPLEMENTAL SCALE SQ SCH ×4 (06:25→21:00)
[2017-01-02 06:42] LABS: BICARBONATE 29.1 MEQ/L (21.0-32.0); POTASSIUM 3.6 MEQ/L (3.5-5.1)
--- NOTE | 2017-01-02 08:39 | HHI.FPPN ---
Subjective Remarks Patient seen and examined this morning. No acute events overnight per nursing staff. Patient hypertensive overnight to 163/80 and still requires 3 L nasal cannula to maintain oxygen saturation. Patient reports he had one episode of shortness of breath this morning that improved with the DuoNeb treatment. He stresses that he would like to be discharged today as his is leaving town tomorrow. He has no other complaints and denies any fevers, chills, chest pain, NVD, abdominal pain, or calf tenderness. (Bowen Quezada MD R2) Objective Vitals Vital Signs Date Time Temp Pulse Resp B/P (MAP) Pulse Ox O2 Delivery O2 Flow Rate FiO2 01/02/17 07:45 97 Nasal Cannula 3.00 01/02/17 07:45 97.8 69 20 163/80 (107) 97 01/02/17 07:00 63 01/02/17 06:00 68 01/02/17 05:00 57 01/02/17 04:00 61 01/02/17 03:00 97.8 66 22 160/84 (109) 92 01/02/17 03:00 92 Nasal Cannula 3.00 01/02/17 03:00 73 01/02/17 02:00 67 01/02/17 01:00 54 01/02/17 00:00 58 01/01/17 23:00 64 01/01/17 23:00 98.1 69 20 143/81 (101) 97 01/01/17 23:00 97 Nasal Cannula 3.00 01/01/17 22:00 66 01/01/17 21:43 98 Nasal Cannula 2.00 01/01/17 21:00 66 01/01/17 20:00 78 01/01/17 19:00 98.0 68 18 146/76 (99) 96 01/01/17 19:00 96 Nasal Cannula 3.00 01/01/17 19:00 76 01/01/17 18:07 63 01/01/17 17:00 73 01/01/17 16:00 71 01/01/17 15:39 98 Nasal Cannula 1.00 01/01/17 15:38 97.2 64 18 112/62 (79) 99 01/01/17 15:00 59 01/01/17 14:00 76 01/01/17 13:34 85 01/01/17 12:01 79 01/01/17 11:57 95 Nasal Cannula 2.50 01/01/17 11:00 98.0 78 20 141/75 (97) 96 01/01/17 11:00 96 Nasal Cannula 2.00 01/01/17 11:00 78 01/01/17 10:00 98 01/01/17 09:00 78 I/O 01/01/17 01/01/17 01/01/17 01/02/17 01/02/17 01/02/17 07:00 15:00 23:00 07:00 15:00 23:00 Intake Total 760 ml 350 ml 560 ml 480 ml Output Total 600 ml 301 ml 550 ml Balance 160 ml 350 ml 259 ml -70 ml Intake Oral 760 ml 560 ml 480 ml IV Total 350 ml Output Urine Total 600 ml 300 ml 550 ml Stool Total 1 ml (Bowen Quezada MD R2) Result Diagram: 01/02/17 0450 01/02/17 0450 Objective Remarks GENERAL: Well-nourished, well-developed patient elderly gentleman lying in bed in no acute distress. SKIN: Warm and dry. No rash. HEENT: Atraumatic, normocephalic with EOMI. No rhinorrhea. No JVD or LAD appreciated on exam CARDIOVASCULAR: Regular rate and rhythm with 2/6 blowing systolic murmur heard best at the left sternal border, consistent with prior exams. RESPIRATORY: Distant breath sounds bilaterally with mild wheezing in the upper lobes. No increased work of breathing. Patient currently on 3 L nasal cannula. GASTROINTESTINAL: Abdomen soft, non-tender, nondistended with positive bowel sounds. No masses appreciated. MUSCULOSKELETAL: No cyanosis or edema. Strength grossly WNL. No calf tenderness. NEURO/PSYCH: Afocal. Awake, alert, and oriented x3. Normal speech and judgment. Normal interaction with the examiner. (Bowen Quezada MD R2) A/P Assessment and Plan 76-year-old male, medical history of CAD and smoking, with acute worsening of shortness of breath. Differential includes COPD versus pneumonia versus CHF versus heart valve abnormality Discharge Planning Likely today with by mouth antibiotics for community-acquired pneumonia and daily Lasix for his congestive heart failure. He is to follow-up with his PCP and cardiology within 1 week. (Bowen Quezada MD R2) Attending Attestation Patient seen and examined. Case reviewed and discussed with the resident team. Agree with plan of care as discussed with me and documented in the resident note. He is markedly improved since admission. he is still requiring some oxygen but does not have the severe distress he had on presentation to the ED. he plans on having great follow up with Cardiology on d/c (Fatimah Gee MD) Problem List: (1) Shortness of breath ICD Codes: R06.02 - Shortness of breath Status: Acute Plan: 76-year-old male, medical history of CAD and smoking, with acute worsening of shortness of breath. Differential includes COPD versus pneumonia versus CHF versus heart valve abnormality. Patient evaluated bedside and was still tachypneic and feeling short of breath, with the labored breathing pattern admission. Improvement with daily Lasix and BiPAP as needed. Clinical symptoms likely due to acute on chronic CHF exacerbation in combination with mild community-acquired pneumonia. - Chest x-ray 12/31: Masslike consolidation involving the right upper lobe, small right pleural effusion with a small component of suspected loculated fluid within the major fissure, left lower lobe infiltrate, cardiomegaly - Chest x-ray 01/01: Small bilateral pleural effusions with loculated fluid involving the right major fissure and minor fissure. No infiltrate or mass. - No leukocytosis - BNP elevated at 1467, repeat 835 - Troponin stable ranging from 0.442 0.55 - EKG: LVH pattern, no ST segment changes - Continue BiPAP as needed. he improved enough to not need this today - ceftriaxone 1 g given in the ED, azithromycin 500 mg () - Lasix 40 daily - Respiratory walk test: Pending - At discharge patient will be continued on Lasix 40 mg daily with azithromycin and Levaquin to complete history for community-acquired pneumonia - Patient to follow-up with his PCP and cardiology within 1 week (2) CHF exacerbation ICD Codes: I50.9 - Heart failure, unspecified Status: Acute Plan: Patient presenting with acute shortness of breath with chest x-ray concerning for pulmonary edema. It - Please see plan as above for shortness of breath (3) CAP (community acquired pneumonia) ICD Codes: J18.9 - Pneumonia, unspecified organism Plan: Patient presenting with shortness of breath, productive cough, and chest x-ray concerning for infiltrate. Please see plan as above for shortness of breath (4) CAD (coronary artery disease) ICD Codes: I25.10 - Atherosclerotic heart disease of [place] coronary artery without angina pectoris Status: Chronic Plan: History of coronary artery disease and stent placement Dr Woodruff is his diving judge and will help with his care, recommends daily Lasix and follow-up within one week at discharge - Continue Plavix 75 daily - Continue aspirin 325 daily - Continue pravastatin 10 daily - Follow up troponins and EKGs - see initial EKG as reported above (5) Hypertension ICD Codes: I10 - Essential (primary) hypertension Status: Chronic Plan: Patient with chronic hypertension - Continue lisinopril 20 daily - Continue atenolol 25 daily (6) Diabetes mellitus ICD Codes: E11.9 - Type 2 diabetes mellitus without complications Plan: - NovoLog sliding scale - Hypoglycemia protocol ordered -Patient to resume metformin at discharge (7) FEN/PPX Status: Acute Plan: Fluids: 1500ml fluid restriction, 2g Na restriction Electrolytes: Within normal limits, continue to monitor Nutrition: heart healthy as tolerated GI: n/a DVT: Heparin 5000 TID, to be discontinued at discharge (Bowen Quezada MD R2) Problem Qualifiers (1) CHF exacerbation: Qualified Codes: I50.33 - Acute on chronic diastolic (congestive) heart failure (2) CAD (coronary artery disease): Qualified Codes: I25.119 - Atherosclerotic heart disease of [place] coronary artery with unspecified angina pectoris (3) Hypertension: Qualified Codes: I10 - Essential (primary) hypertension (4) Diabetes mellitus: Qualified Codes: E11.8 - Type 2 diabetes mellitus with unspecified complications Bowen Quezada MD R2 Jan 02, 2017 08:39 Fatimah Gee MD Jan 02, 2017 13:07
--- NOTE | 2017-01-02 08:42 | HHI.DCPOC ---
Discharge Care Plan Diagnosis: (1) CAP (community acquired pneumonia) (2) CHF exacerbation (3) Shortness of breath Goals to Promote Your Health * To prevent worsening of your condition and complications * To maintain your health at the optimal level Directions to Meet Your Goals Take your medications as prescribed Follow your dietary instruction Follow activity as directed Keep your appointments as scheduled Take your immunizations and boosters as scheduled If your symptoms worsen call your PCP, if no PCP go to Urgent Care Center or Emergency Room Smoking is Dangerous to Your Health. Avoid second hand smoke Call the 24-hour hour crisis hotline for domestic abuse at Bowen Quezada MD R2 Jan 02, 2017 08:42
--- NOTE | 2017-01-02 08:44 | HHI.FF ---
Face to Face Verification Diagnosis: (1) CHF exacerbation (2) CAP (community acquired pneumonia) (3) Shortness of breath Physical Therapy Order: Evaluate and Treat, Improve ambulation, Strength and gait training I have seen patient Chris Pires on 01/02/17. My clinical findings support the need for the requested home health care services because: Ltd mobility - disease progression Patient has SOB Deconditioned w/ increased weakness High risk of falls I certify that my clinical findings support that this patient is homebound because: Hx COPD- exertion dyspnea/weakness Unsteady gait/balance Bowen Quezada MD R2 Jan 02, 2017 08:44
[2017-01-02] MEDS ORDERED: FURO40TA PO (08:46)
[2017-01-02] MEDS: LISINOPRIL 20 MG TAB PO SCH (08:59)
[2017-01-02] MEDS: ASPIRIN EC 325 MG TABEC PO SCH (08:59)
[2017-01-02] MEDS: CLOPIDOGREL 75 MG TAB PO SCH (09:00)
[2017-01-02] MEDS: FUROSEMIDE 40 MG TAB PO SCH (09:00)
[2017-01-02] MEDS: SODIUM CHLORIDE 0.9% FLUSH 10 ML FLUSH IV FLUSH SCH (09:00)
[2017-01-02] MEDS: ATENOLOL 25 MG TAB PO SCH (09:00)
[2017-01-02] MEDS: AZITHROMYCIN INJ 500 MG in SODIUM CHLOR 0.9% 250 ML INJ 250 ML IV SCH (12:00)
--- NOTE | 2017-01-02 12:37 | ECHRPT ---
Indication: heart failure CONCLUSIONS Moderately dilated left ventricle. Mild concentric left ventricular hypertrophy. The left ventricular systolic function is low normal with an estimated ejection fraction in the rang e of 50- 55%. Mild thickening of the mitral valve leaflets. Mild mitral valve regurgitation. Mitral annular calcification is present. Trace aortic valve regurgitation. Mild to moderate aortic valve stenosis. Max AV 43mmhg mean 21mmhg Aortic valve area is 1.4 cm. There is mild tricuspid valve regurgitation. The estimated pulmonary arterial pressure is 19 mmHg. The pulmonary valve is not well visualized. BP: / HR: Rhythm: MEASUREMENTS (Male / Female) Normal Values Technical Quality:Technically difficult study 2D ECHO LV Diastolic Diameter PLAX 4.9 cm 4.2 - 5.9 / 3.9 - 5.3 cm LV Systolic Diameter PLAX 4.2 cm IVS Diastolic Thickness 0.9 cm 0.6 - 1.0 / 0.6 - 0.9 cm LVPW Diastolic Thickness 0.9 cm 0.6 - 1.0 / 0.6 - 0.9 cm LV Relative Wall Thickness 0.4 RV Internal Dim ED PLAX 2.9 cm LVOT Diameter 2.6 cm M-MODE Aortic Root Diameter MM 3.5 cm LA Systolic Diameter MM 3.7 cm LA Ao Ratio MM 1.1 AV Cusp Separation MM 1.1 cm DOPPLER AV Peak Velocity 328.3 cm/s AV Peak Gradient 43.1 mmHg AV Mean Gradient 19.7 mmHg AV Velocity Time Integral 55.2 cm LVOT Peak Velocity 60.9 cm/s LVOT Peak Gradient 1.5 mmHg LVOT Velocity Time Integral 14.9 cm AV Area Cont Eq vti 1.4 cm AV Area Cont Eq pk 1.0 cm LV E' Lateral Velocity 9.8 cm/s LV E' Septal Velocity 10.5 cm/s TR Peak Velocity 220.0 cm/s TR Peak Gradient 19.4 mmHg FINDINGS LEFT VENTRICLE Moderately dilated left ventricle. Mild concentric left ventricular hypertrophy. The left ventricular systolic function is low normal with an estimated ejection fraction in the rang e of 50- 55%. RIGHT VENTRICLE Normal right ventricular size and systolic function. LEFT ATRIUM The left atrial size is normal. RIGHT ATRIUM The right atrial size is normal. ATRIAL SEPTUM Normal atrial septal thickness without atrial level shunting by limited color doppler interrogation. AORTA The aortic root and proximal ascending aorta are normal in size on limited imaging. MITRAL VALVE Mild thickening of the mitral valve leaflets. Mild mitral valve regurgitation. Mitral annular calcification is present. AORTIC VALVE Trace aortic valve regurgitation. Mild to moderate aortic valve stenosis. Max AV 43mmhg mean 21mmhg Aortic valve area is 1.4 cm. TRICUSPID VALVE There is mild tricuspid valve regurgitation. The estimated pulmonary arterial pressure is 19 mmHg. PULMONARY VALVE The pulmonary valve is not well visualized. VESSELS The inferior vena cava is normal in size. PERICARDIUM No pericardial effusion. Theo Henriquez MD, FACC (Electronically Signed) Final Date:02 January 2017 12:35
[2017-01-02] MEDS: cefTRIAXone INJ 1,000 MG in SODIUM CHLORIDE 0.9% INJ 100 ML IV SCH (13:00)
[2017-01-02] MEDS ORDERED: OXYGENTANK NAS.CANULA (14:23)
--- NOTE | 2017-01-02 14:25 | HHI.FF ---
Face to Face Verification Diagnosis: (1) Shortness of breath (2) CAP (community acquired pneumonia) (3) CHF exacerbation Home Health Nursing Order: Oxygen administration education I have seen patient Chris Pires on 01/02/17. My clinical findings support the need for the requested home health care services because: Patient has SOB Deconditioned w/ increased weakness Med compliance is questionable I certify that my clinical findings support that this patient is homebound because: Hx COPD- exertion dyspnea/weakness Poor cardiac reserve Bowen Quezada MD R2 Jan 02, 2017 14:25
[2017-01-02] MEDS: PRAVASTATIN SOD 10 MG TAB PO SCH (20:29)
[2017-01-03] VITALS (11 sets, daily range): BP systolic 124–145; BP diastolic 72–79; PULSE 60–76; RESP 18; TEMP 97.3–97.8; O2SAT 94–97
[2017-01-03] MEDS: HEPARIN SODIUM - SQ 10,000 UNITS/ML VIAL SQ SCH (05:34)
[2017-01-03] MEDS: INSULIN ASPART SUPPLEMENTAL SCALE SQ SCH ×2 (06:36→11:00)
[2017-01-03 06:53] LABS: HEMATOCRIT 35.6 % (39.0-51.0); MEAN CELL VOLUME 82.8 FL (80.0-100.0); MEAN CORPUSCULAR HEMOGLOBIN 25.9 PG (27.0-34.0); MEAN CORPUSCULAR HGB CONC 31.2 % (32.0-36.0); PLATELET COUNT 184 TH/MM3 (150-450); RED BLOOD COUNT 4.29 MIL/MM3 (4.50-5.90); RED CELL DISTRIBUTION WIDTH 15.4 % (11.6-17.2); REVIEW FLAG FINAL; WHITE BLOOD COUNT 6.6 TH/MM3 (4.0-11.0)
[2017-01-03 07:13] LABS: BICARBONATE 30.2 MEQ/L (21.0-32.0); POTASSIUM 3.6 MEQ/L (3.5-5.1)
--- NOTE | 2017-01-03 08:22 | HHI.FPPN ---
Subjective Remarks Pt seen and examined bedside. No acute events overnight. Pt states his breathing is better and much improved from his initial admission. Pt experienced some SOB again overnight but it was relieved quickly with nebulizer treatments. Pt is expressing great desire/demand to go home today. Pt denies any fever/chills. Pt denies SOB/CP/dizziness. (Leighann Amaro MD R2) Objective Vitals Vital Signs Date Time Temp Pulse Resp B/P (MAP) Pulse Ox O2 Delivery O2 Flow Rate FiO2 01/03/17 05:00 97.8 67 94 01/03/17 04:00 95 Nasal Cannula 3.00 01/03/17 03:00 72 01/03/17 02:00 68 01/03/17 01:00 60 01/03/17 00:00 68 01/03/17 00:00 95 Nasal Cannula 3.00 01/03/17 00:00 97.3 76 18 145/79 (101) 95 01/02/17 23:00 74 01/02/17 22:00 98 01/02/17 21:31 97 Nasal Cannula 2.00 01/02/17 21:00 92 01/02/17 20:00 70 01/02/17 20:00 97.7 73 18 127/74 (91) 97 01/02/17 20:00 97 Nasal Cannula 3.00 01/02/17 18:00 78 01/02/17 17:00 70 01/02/17 16:00 98.0 72 20 142/78 (99) 97 01/02/17 16:00 97 Nasal Cannula 3.00 01/02/17 15:00 81 01/02/17 14:00 84 01/02/17 13:00 64 01/02/17 12:00 64 01/02/17 12:00 96 Nasal Cannula 3.00 01/02/17 12:00 98.3 76 20 152/80 (104) 96 01/02/17 11:00 66 01/02/17 10:00 68 01/02/17 09:14 96 Nasal Cannula 2.00 01/02/17 09:00 62 I/O 01/02/17 01/02/17 01/02/17 01/03/17 01/03/17 01/03/17 06:59 14:59 22:59 06:59 14:59 22:59 Intake Total 480 ml 480 ml Output Total 550 ml 700 ml Balance -70 ml -220 ml Intake Oral 480 ml 480 ml Output Urine Total 550 ml 700 ml (Leighann Amaro MD R2) Result Diagram: 01/03/1753401/03/17534 Objective Remarks GENERAL: Well-nourished, well-developed patient elderly gentleman lying in bed in no acute distress. SKIN: Warm and dry. No rash. HEENT: Atraumatic, normocephalic with EOMI. No rhinorrhea. No JVD or LAD appreciated on exam CARDIOVASCULAR: Regular rate and rhythm with 2/6 blowing systolic murmur heard best at the left sternal border, consistent with prior exams. RESPIRATORY: Distant breath sounds bilaterally with mild wheezing in the upper lobes. No increased work of breathing. Patient currently on 3 L nasal cannula. GASTROINTESTINAL: Abdomen soft, non-tender, nondistended with positive bowel sounds. No masses appreciated. MUSCULOSKELETAL: No cyanosis or edema. Strength grossly WNL. No calf tenderness. NEURO/PSYCH: Afocal. Awake, alert, and oriented x3. Normal speech and judgment. Normal interaction with the examiner. (Leighann Amaro MD R2) A/P Assessment and Plan 76-year-old male presented with acute worsening SOB and has improved with lasix and BIPAP; likely mild pneumoniae and acute CHF exacerbation. Discharge Planning Likely today with by mouth antibiotics for community-acquired pneumonia and daily Lasix for his congestive heart failure. He is to follow-up with his PCP and cardiology within 1 week. (Leighann Amaro MD R2) Attending Attestation Patient seen and examined. Case reviewed and discussed with the resident team. Agree with plan of care as discussed with me and documented in the resident note. He absolutely and adamantly wants to leave the hospital. he is a DNR and will follow up well with his primary Dr and Dr Woodruff. He has chronic COPD and will need to consider PFTs as an out pt per his Primary. (Fatimah Gee MD) Problem List: (1) Shortness of breath ICD Codes: R06.02 - Shortness of breath Status: Acute Plan: 76-year-old male, medical history of CAD and smoking, with acute worsening of shortness of breath. Differential includes COPD versus pneumonia versus CHF versus heart valve abnormality. Patient evaluated bedside and was still tachypneic and feeling short of breath, with the labored breathing pattern admission. Improvement with daily Lasix and BiPAP as needed. Clinical symptoms likely due to acute on chronic CHF exacerbation in combination with mild community-acquired pneumonia. - Chest x-ray 12/31: Masslike consolidation involving the right upper lobe, small right pleural effusion with a small component of suspected loculated fluid within the major fissure, left lower lobe infiltrate, cardiomegaly - Chest x-ray 01/01: Small bilateral pleural effusions with loculated fluid involving the right major fissure and minor fissure. No infiltrate or mass. - No leukocytosis - BNP elevated at 1467, repeat 835 - Troponin stable ranging from 0.442 0.55 - EKG: LVH pattern, no ST segment changes - Continue BiPAP as needed. he improved enough to not need this today - ceftriaxone 1 g given in the ED, azithromycin 500 mg () - Lasix 40 daily - Respiratory walk test: only 12 feet, will need to be d/c with O2 tank -D/C today with Lasix 40 mg daily with azithromycin and Levaquin (3 more days) to complete history for community-acquired pneumonia - Patient to follow-up with his PCP and cardiology within 1 week (2) CHF exacerbation ICD Codes: I50.9 - Heart failure, unspecified Status: Acute Plan: Patient presenting with acute shortness of breath with chest x-ray concerning for pulmonary edema. - Please see plan as above for shortness of breath (3) CAP (community acquired pneumonia) ICD Codes: J18.9 - Pneumonia, unspecified organism Plan: Patient presenting with shortness of breath, productive cough, and chest x-ray concerning for infiltrate. Please see plan as above for shortness of breath (4) CAD (coronary artery disease) ICD Codes: I25.10 - Atherosclerotic heart disease of [place] coronary artery without angina pectoris Status: Chronic Plan: History of coronary artery disease and stent placement Dr Woodruff is his veterinary virus serum inspector and will help with his care, recommends daily Lasix and follow-up within one week at discharge - Continue Plavix 75 daily - Continue aspirin 325 daily - Continue pravastatin 10 daily - troponins and EKGs negative (5) Hypertension ICD Codes: I10 - Essential (primary) hypertension Status: Chronic Plan: Patient with chronic hypertension - Continue lisinopril 20 daily - Continue atenolol 25 daily (6) Diabetes mellitus ICD Codes: E11.9 - Type 2 diabetes mellitus without complications Plan: - NovoLog sliding scale - Hypoglycemia protocol ordered -Patient to resume metformin at discharge (7) FEN/PPX Status: Acute Plan: Fluids: 1500ml fluid restriction, 2g Na restriction Electrolytes: Within normal limits, continue to monitor Nutrition: heart healthy as tolerated GI: n/a DVT: Heparin 5000 TID, to be discontinued at discharge (Leighann Amaro MD R2) Problem Qualifiers (1) CHF exacerbation: Qualified Codes: I50.33 - Acute on chronic diastolic (congestive) heart failure (2) CAD (coronary artery disease): Qualified Codes: I25.119 - Atherosclerotic heart disease of [place] coronary artery with unspecified angina pectoris (3) Hypertension: Qualified Codes: I10 - Essential (primary) hypertension (4) Diabetes mellitus: Qualified Codes: E11.8 - Type 2 diabetes mellitus with unspecified complications Leighann Amaro MD R2 Jan 03, 2017 08:22 Fatimah Gee MD Jan 03, 2017 13:13
[2017-01-03] MEDS ORDERED: NEBUKIT5 ×2 (08:40→10:15)
[2017-01-03] MEDS ORDERED: LEVOFLOXACIN 750 MG TAB PO SCH (09:00)
[2017-01-03] MEDS ORDERED: ALBU0.08 NEB (10:15)
[2017-01-03] MEDS ORDERED: IPRA0.02 NEB (10:15)
[2017-01-03] MEDS ORDERED: LEVO750T3 PO (10:15)
[2017-01-03] MEDS ORDERED: OXYGENTANK NAS.CANULA (10:15)
[2017-01-03] MEDS: ASPIRIN EC 325 MG TABEC PO SCH (10:38)
[2017-01-03] MEDS: CLOPIDOGREL 75 MG TAB PO SCH (10:38)
[2017-01-03] MEDS: ATENOLOL 25 MG TAB PO SCH (10:38)
[2017-01-03] MEDS: FUROSEMIDE 40 MG TAB PO SCH (10:39)
[2017-01-03] MEDS: SODIUM CHLORIDE 0.9% FLUSH 10 ML FLUSH IV FLUSH SCH ×2 (10:39→10:43)
[2017-01-03] MEDS: LISINOPRIL 20 MG TAB PO SCH (10:42)
[2017-01-03] MEDS ORDERED: AZITHROMYCIN INJ 500 MG in SODIUM CHLOR 0.9% 250 ML INJ 250 ML IV SCH (12:00)
--- NOTE | 2017-01-03 12:14 | HHI.DS ---
Discharge Summary Admission Date Dec 31, 2016 at 12:40 Discharge Date: Jan 03, 2017 Admitting Diagnosis CHF exacerbation (1) Shortness of breath Plan: 76-year-old male, medical history of CAD and smoking, with acute worsening of shortness of breath. Differential includes COPD versus pneumonia versus CHF versus heart valve abnormality. Patient evaluated bedside and was still tachypneic and feeling short of breath, with the labored breathing pattern admission. Improvement with daily Lasix and BiPAP as needed. Clinical symptoms likely due to acute on chronic CHF exacerbation in combination with mild community-acquired pneumonia. - Chest x-ray 12/31: Masslike consolidation involving the right upper lobe, small right pleural effusion with a small component of suspected loculated fluid within the major fissure, left lower lobe infiltrate, cardiomegaly - Chest x-ray 01/01: Small bilateral pleural effusions with loculated fluid involving the right major fissure and minor fissure. No infiltrate or mass. - No leukocytosis - BNP elevated at 1467, repeat 835 - Troponin stable ranging from 0.442 0.55 - EKG: LVH pattern, no ST segment changes - Continue BiPAP as needed. he improved enough to not need this today - ceftriaxone 1 g given in the ED, azithromycin 500 mg () - Lasix 40 daily - Respiratory walk test: only 12 feet, will need to be d/c with O2 tank -D/C today with Lasix 40 mg daily with azithromycin and Levaquin (3 more days) to complete history for community-acquired pneumonia - Patient to follow-up with his PCP and cardiology within 1 week ICD Codes: R06.02 - Shortness of breath Status: Acute (2) CHF exacerbation Plan: Patient presenting with acute shortness of breath with chest x-ray concerning for pulmonary edema. - Please see plan as above for shortness of breath ICD Codes: I50.9 - Heart failure, unspecified Status: Acute (3) CAP (community acquired pneumonia) Plan: Patient presenting with shortness of breath, productive cough, and chest x-ray concerning for infiltrate. Please see plan as above for shortness of breath ICD Codes: J18.9 - Pneumonia, unspecified organism (4) CAD (coronary artery disease) Plan: History of coronary artery disease and stent placement Dr Woodruff is his party host/hostess and will help with his care, recommends daily Lasix and follow-up within one week at discharge - Continue Plavix 75 daily - Continue aspirin 325 daily - Continue pravastatin 10 daily - troponins and EKGs negative ICD Codes: I25.10 - Atherosclerotic heart disease of [place] coronary artery without angina pectoris Status: Chronic (5) Hypertension Plan: Patient with chronic hypertension - Continue lisinopril 20 daily - Continue atenolol 25 daily ICD Codes: I10 - Essential (primary) hypertension Status: Chronic (6) Diabetes mellitus Plan: - NovoLog sliding scale - Hypoglycemia protocol ordered -Patient to resume metformin at discharge ICD Codes: E11.9 - Type 2 diabetes mellitus without complications (7) FEN/PPX Plan: Fluids: 1500ml fluid restriction, 2g Na restriction Electrolytes: Within normal limits, continue to monitor Nutrition: heart healthy as tolerated GI: n/a DVT: Heparin 5000 TID, to be discontinued at discharge Status: Acute Brief History Mr Pires is a 76 y/o M, pmhx CAD and smoking, in with worsening SOB. He has been experiencing SOB for 1 month, with worsening over the last 1.5 weeks. He experiences these symptoms daily and describes it as - a feeling of not being able to get enough air in his lungs. His SOB acutely worsened the morning of admission around 6:30AM. He has noticed the sx with activity; for example, walking to the mailbox, walking around grocery store, and today even walking to bathroom. He denies any cough, congestion, or other signs of infection. Denies fever/chills. Denies any pain with breathing in or out. Denies any sick contacts or recent travel. He follows with a party host/hostess and denies ever being told he has any valve abnormalities or heart failure. He stopped smoking a week before his sx started, and has smoked cigarettes for 60pack years. No recent weight changes, change in appetite, or night sweats. He needed bipap when he first came in and was struggling to breathe initially. he came off bipap when he diuresed and was able to breathe more comfortably. he reported this am he was still SOB when walking to the bathroom but was much more comfortable at rest than on admission. He strongly requested leaving the hospital by Friday as his was leaving town. CBC/BMP: 01/03/17 0535 01/03/17 0535 Significant Findings Laboratory Tests Test 12/31/16 12:40 12/31/16 12:45 12/31/16 17:21 12/31/16 20:38 Arterial Blood Partial Pressure CO2 43 mmHg (38-42) Blood Gas Hemoglobin 11.3 G/DL (12.0-16.0) Troponin I 0.48 NG/ML (0.02-0.05) Urine Occult Blood TRACE (NEG) Test 12/31/16 22:30 01/01/17 05:06 01/02/17 04:50 01/03/17 05:35 Troponin I 0.55 NG/ML (0.02-0.05) Red Blood Count 4.16 MIL/MM3 (4.50-5.90) 4.28 MIL/MM3 (4.50-5.90) 4.29 MIL/MM3 (4.50-5.90) Hemoglobin 10.9 GM/DL (13.0-17.0) 11.5 GM/DL (13.0-17.0) 11.1 GM/DL (13.0-17.0) Hematocrit 34.5 % (39.0-51.0) 35.5 % (39.0-51.0) 35.6 % (39.0-51.0) Mean Corpuscular Hemoglobin 26.3 PG (27.0-34.0) 26.8 PG (27.0-34.0) 25.9 PG (27.0-34.0) Mean Corpuscular Hemoglobin Concent 31.7 % (32.0-36.0) 31.2 % (32.0-36.0) Monocytes (%) (Auto) 9.4 % (0.0-8.0) Blood Urea Nitrogen 26 MG/DL (7-18) 23 MG/DL (7-18) 19 MG/DL (7-18) Calcium Level 8.4 MG/DL (8.5-10.1) 8.4 MG/DL (8.5-10.1) Estimat Glomerular Filtration Rate 84 ML/MIN (>89) 78 ML/MIN (>89) 83 ML/MIN (>89) B-Type Natriuretic Peptide 835 PG/ML (0-100) PE at Discharge GENERAL: Well-nourished, well-developed patient elderly gentleman lying in bed in no acute distress. SKIN: Warm and dry. No rash. HEENT: Atraumatic, normocephalic with EOMI. No rhinorrhea. No JVD or LAD appreciated on exam CARDIOVASCULAR: Regular rate and rhythm with 2/6 blowing systolic murmur heard best at the left sternal border, consistent with prior exams. RESPIRATORY: Distant breath sounds bilaterally with mild wheezing in the upper lobes. No increased work of breathing. Patient currently on 3 L nasal cannula. GASTROINTESTINAL: Abdomen soft, non-tender, nondistended with positive bowel sounds. No masses appreciated. MUSCULOSKELETAL: No cyanosis or edema. Strength grossly WNL. No calf tenderness. NEURO/PSYCH: Afocal. Awake, alert, and oriented x3. Normal speech and judgment. Normal interaction with the examiner. Hospital Course 76 y/o M DNR patient, pmhx CAD and smoking, comes in with worsening SOB. He has been experiencing SOB for 1 month, with worsening over the last 1.5 weeks ; likely acute CHF exacerbation, cannot rule out pneumoniae . Initial CXR: Masslike consolidation involving the right upper lobe, small right pleural effusion with a small component of suspected loculated fluid within the major fissure, left lower lobe infiltrate, Pt given Lasix 40 in the ED and put on BIPAP, and empirically treated with Ceftriaxone/Azithromycin for underlying CAP. Next day CXR showed major improvememt. Patient showed marked improvement over his hospital course. Patient did walk test; could only go 12 feet. Patient discharged with Lasix and oxygen and remainder of empiric antibiotic treatment for underlying pneumonia. Patient to see party host/hostess within 1 week and PCP within one week Pt Condition on Discharge: Stable Discharge Disposition: Discharge Home Discharge Instructions DIET: Follow Instructions for: Heart Healthy Diet Activities you can perform: Regular-No Restrictions Leighann Amaro MD R2 Jan 03, 2017 12:14
--- NOTE | 2017-01-03 14:07 | HHI.PR ---
Subjective Remarks pt denies chest pain Objective Vital Signs Date Time Temp Pulse Resp B/P (MAP) Pulse Ox O2 Delivery O2 Flow Rate FiO2 01/03/17 12:00 2.00 01/03/17 11:30 97.3 68 18 124/74 (91) 97 01/03/17 11:00 Nasal Cannula 2.00 40 01/03/17 07:00 97.4 70 18 141/72 (95) 01/03/17 07:00 Nasal Cannula 2.00 01/03/17 05:00 97.8 67 94 01/03/17 04:00 95 Nasal Cannula 3.00 01/03/17 03:00 72 01/03/17 02:00 68 01/03/17 01:00 60 01/03/17 00:00 68 01/03/17 00:00 95 Nasal Cannula 3.00 01/03/17 00:00 97.3 76 18 145/79 (101) 95 01/02/17 23:00 74 01/02/17 22:00 98 01/02/17 21:31 97 Nasal Cannula 2.00 01/02/17 21:00 92 01/02/17 20:00 70 01/02/17 20:00 97.7 73 18 127/74 (91) 97 01/02/17 20:00 97 Nasal Cannula 3.00 01/02/17 18:00 78 01/02/17 17:00 70 01/02/17 16:00 98.0 72 20 142/78 (99) 97 01/02/17 16:00 97 Nasal Cannula 3.00 01/02/17 15:00 81 I/O 01/02/17 01/02/17 01/02/17 01/03/17 01/03/17 01/03/17 07:00 15:00 23:00 07:00 15:00 23:00 Intake Total 480 ml 480 ml 50 ml Output Total 550 ml 700 ml Balance -70 ml -220 ml 50 ml Intake Oral 480 ml 480 ml IV Total 50 ml Output Urine Total 550 ml 700 ml VSS CHEST" CTA HEART: S1,S2,RRR ABD ST, NT EXT" No edema Result Diagram: 01/03/17 0535 01/03/17 0535 Assessment and Plan Assessment and Plan pt denies chest pain. he is being discharged.I will see him in my office next week.. Shamsin,Ahmad MD Jan 03, 2017 14:07
--- NOTE | 2017-01-03 17:01 | HHI.PR ---
Addendum to Inpatient Note Addendum Reason: Additional Documentation Additional Information I was called by the [facility] late this afternoon. Mr Pires's prescriptions were faxed to that [facility] at about 230 pm this afternoon but they experienced a power failure and did not have any of the information. I spoke to the Pharmacist and called in the 4 new scripts including the lasix, antibiotics and 2 nebulizer solutions. He had his preexisting meds at home already. Fatimah Gee MD Jan 03, 2017 17:01
== END 2017-01-03 15:15 | disposition home health service (06) | DRG 280 ==
LOC: NEPC 10:11 → NEDA 12:40 → HCIS 15:53
PROVIDERS: ADMIT Family Medicine; ATTEND Family Medicine
DX: I11.0 Hypertensive heart disease with heart failure (principal); J18.9 Pneumonia, unspecified organism; I21.4 Non-ST elevation (NSTEMI) myocardial infarction; J44.0 Chronic obstructive pulmonary disease with (acute) lower respiratory infection; E11.9 Type 2 diabetes mellitus without complications; I50.33 Acute on chronic diastolic (congestive) heart failure; E78.5 Hyperlipidemia, unspecified; I25.10 Atherosclerotic heart disease of native coronary artery without angina pectoris; Z87.891 Personal history of nicotine dependence; I25.2 Old myocardial infarction; Z95.5 Presence of coronary angioplasty implant and graft; Z79.84 Long term (current) use of oral hypoglycemic drugs; Z66 Do not resuscitate; Z79.02 Long term (current) use of antithrombotics/antiplatelets; Z79.82 Long term (current) use of aspirin
CPT/HCPCS: 36600; 71010; 71020; 80048; 81001; 82805; 82948; 83605; 83735; 83880; 84484; 85025; 85027; 85610; 85730; 87040; 87449; 93005; 93306; 94150; 94620; 94640; 94664; J0456; J0696; J1644; J1940; J7050